=== PATIENT | female | born 1995 | race Caucasian/White ===

== ENCOUNTER → 2023-04-10 12:48 | Outpatient (CLI) | payer OTHER, SELFPAY ==
[2023-04-10 15:30] LABS: Prolactin 4.2 ng/mL (3.0-18.6)
== END ==
PROVIDERS: Referring Provider Physician Assistant Medical; Visit Provider Physician Assistant Medical
DX: E22.1 Hyperprolactinemia (principal)
CPT/HCPCS: 36415; 84146

== ENCOUNTER → 2023-05-12 15:15 | Outpatient (CLI) | payer OTHER, SELFPAY | PROVIDERS: Referring Provider Family Medicine; Visit Provider Family Medicine | DX: Z23 Encounter for immunization (principal) | CPT/HCPCS: 90471; 90686 ==

== ENCOUNTER → 2023-08-31 09:20 | Outpatient (CLI) | payer OTHER, SELFPAY ==
[2023-08-31 10:46] LABS: BUN Creatinine Ratio 18.6 (6-22); Blood Urea Nitrogen 11 mg/dL (7-17); Calcium 9.8 mg/dL (8.4-10.2); Carbon Dioxide 22 mmol/L (22-32); Chloride 107 mmol/L (98-107); Estimated Glomerular Filt Rate > 60 mL/min (>60); Glucose 90 mg/dL (70-100); Sodium 138 mmol/L (137-145)
[2023-08-31 10:56] LABS: HEMOLYSIS 77 (0-50); Potassium 4.6 mmol/L (3.4-5.1)
[2023-08-31 11:03] LABS: Prolactin < 1.4 ng/mL (3.0-18.6)
== END ==
LOC: LAB 09:22
PROVIDERS: PCP Family Medicine; Referring Provider Internal Medicine Endocrinology, Diabetes & Metabolism; Visit Provider Internal Medicine Endocrinology, Diabetes & Metabolism
DX: E22.1 Hyperprolactinemia (principal)
CPT/HCPCS: 36415; 80048; 84146

== ENCOUNTER → 2023-12-22 19:05 | Outpatient (CLI) | payer OTHER, SELFPAY | PROVIDERS: PCP Family Medicine; Visit Provider Nurse Practitioner Family | DX: J02.9 Acute pharyngitis, unspecified (principal) | CPT/HCPCS: 87070 ==

== ENCOUNTER → 2025-05-04 15:45 | Outpatient (CLI) | payer OTHER, SELFPAY | PROVIDERS: Family Provider Family Medicine; PCP Family Medicine; Referring Provider Family Medicine; Visit Provider Family Medicine | DX: Z02.1 Encounter for pre-employment examination (principal) | CPT/HCPCS: 86480 ==